=== PATIENT | female | born 1975 | race Caucasian/White ===

== ENCOUNTER 2021-11-28 22:11 | Emergency (ER) | payer OTHER ==
[~2021-11-28] VITALS: Ht 165.1 cm; Wt 54.4 kg
[2021-11-28 22:27] VITALS: BP 133/72
[2021-11-28] MEDS ORDERED: FOLIC ACID 1 MG TAB PO ONE (23:30)
[2021-11-28] MEDS ORDERED: THIAMINE HCL 100 MG TAB PO ONE (23:30)
== END 2021-11-29 01:29 | disposition left against medical advice (07) ==
LOC: EDBD 22:11 → ER 22:13
DX: F10.129 Alcohol abuse with intoxication, unspecified (principal); Y90.9 Presence of alcohol in blood, level not specified; Z53.29 Procedure and treatment not carried out because of patient's decision for other reasons

== ENCOUNTER 2023-03-04 06:59 | Emergency (ER) | payer OTHER ==
[~2023-03-04] VITALS: Ht 162.6 cm; Wt 56.8 kg
[2023-03-04] MEDS ORDERED: LORazepam 2MG/ML-1ML VIAL IV ONE (08:00)
[2023-03-04] MEDS ORDERED: THIAMINE 100mg/ml INJ (200mg/2ml VIAL) IV ONE (08:00)
[2023-03-04] MEDS ORDERED: SODIUM CHLORIDE 0.9% 1,000 ML IV ONE ×3 (08:00→08:45)
[2023-03-04 08:09] LABS: Basophils # (auto) 0 10 ^3/uL (0-0.2); Eosinophils # (auto) 0 10 ^3/uL (0-0.8); Eosinophils % (auto) 0.2 % (0.0-7.0); Hematocrit 43.7 % (36.0-46.0); Hemoglobin 14.9 g/dL (12.2-16.2); Lymphocytes # (auto) 0.8 10 ^3/uL (0.4-5.4); Monocytes # (auto) 0.6 10 ^3/uL (0-1.3)
[2023-03-04 08:10] LABS: Basophils % (auto) 0.2 % (0.0-2.0); Lymphocytes % (auto) 6.8 % (10.0-50.0); Mean Corpuscular Hemoglobin 37.4 pg (28.0-32.0); Mean Corpuscular Volume 109.9 fL (80.0-100.0); Monocytes % (auto) 4.5 % (0.0-12.0); Neutrophils # (auto) 10.9 10 ^3/uL (1.6-8.6); Neutrophils % (auto) 88.3 % (37.0-80.0); Nucleated Red Blood Cells % 0.2 %; Red Blood Cells 3.98 10^6/uL (4.0-5.20); Red Cell Distribution Width 13.7 % (11.8-14.3); White Blood Cell 12.3 10^3/uL (4.4-10.8)
[2023-03-04 08:19] LABS: Urine Bacteria FEW /hpf (None Seen); Urine Blood 1+ /uL (Negative); Urine Hyaline Cast FEW /lpf (0 - 2); Urine Mucus FEW (None Seen); Urine Specific Gravity 1.018 (1.001-1.035); Urine WBC 13 /hpf (0 - 5)
[2023-03-04 08:37] LABS: Albumin 3.3 g/dL (3.4-5.0); Calcium 8.7 mg/dL (8.5-10.1); Potassium 3.4 mmol/L (3.5-5.1)
[2023-03-04 08:43] LABS: BUN/Creatinine Ratio 7.2 (10.0-20.0); Bilirubin, Total 2.2 mg/dL (0.2-1.0); Total Protein 7.9 g/dL (6.4-8.2)
[2023-03-04] MEDS ORDERED: cefTRIAXone 1GM/50ML D5W 50 ML IV ONE (09:00)
[2023-03-04] MEDS ORDERED: KETOROLAC TROMETH 30 MG/ML 1ML VIAL IV ONE (09:00)
[2023-03-04] MEDS ORDERED: metroNIDAZOLE 500MG/100ML 100 ML IV ONE (11:15)
[2023-03-04 17:42] VITALS: BP 126/75
== END 2023-03-04 18:14 | disposition short-term general hospital (02) ==
LOC: ER 06:59
DX: R10.84 Generalized abdominal pain (principal); N30.01 Acute cystitis with hematuria; E87.6 Hypokalemia; K81.0 Acute cholecystitis; F10.90 Alcohol use, unspecified, uncomplicated
CPT/HCPCS: 36415; 72131; 74176; 76705; 80053; 81001; 83605; 85025; 87040; 96361; 96365; 96367; 96375; 99285; J0696; J1885; J3411; J3490; J7030